=== PATIENT | female | born 1995 | race Caucasian/White ===

== ENCOUNTER → 2018-05-31 11:00 | Outpatient (CLI) | payer OTHER, SELFPAY ==
[2018-06-01 12:29] LABS: Group B Strep DNA By PCR Negative (Negative); Internal Control PASS; Probe Check PASS; Specimen Processing Control PASS
== END ==
PROVIDERS: Visit Provider Obstetrics & Gynecology
DX: Z36.85 Encounter for antenatal screening for Streptococcus B (principal)
CPT/HCPCS: 87081; 87653

== ENCOUNTER 2018-07-01 03:05 | Inpatient (IN) | payer SELFPAY, OTHER ==
[2018-07-01] MEDS: Lactated Ringers 1,000 ML 50 ML IV ×5 (03:15→17:45)
[2018-07-01 03:34] LABS: Hematocrit 39.5 % (37-47); Hemoglobin 13.5 g/dl (12.0-15.0); Mean Corp Hgb Conc 34.2 g/gl (32-36); Mean Corpuscular Hgb 30.3 pg (27.0-32.0); Mean Corpuscular Volume 88.8 fL (81-99); Mean Platelet Vol. 10.5 fl (6.2-12.0); Platelet Count 173 K/mm3 (150-450); RBC Distribution Width CV 13.2 % (11.6-14.6); RBC Distribution Width SD 42.3 fl (35.1-43.9); Red Blood Count 4.45 M/mm3 (4.2-5.4); White Blood Count 10.3 K/mm3 (4.4-11.0)
[2018-07-01 03:38] LABS: Scan Indicated on CBC? Y/N NO
[2018-07-01] MEDS: fentaNYL-bupivacaine (epidural) 100 ML BAG EPIDURAL ×3 (04:43→15:36)
[2018-07-01 05:57] LABS: Chlamydia Trachomatis by PCR Negative (Negative); Neisserai gonorrhoeae by PCR Negative (Negative); Probe Check PASS; Sample Adequacy Control PASS; Specimen Processing Control PASS
[2018-07-01] MEDS: Oxytocin 30 units/NS 500 ml 30 UNITS/500 ML IV.SOLN IV (09:32)
[2018-07-01] MEDS: Ondansetron 4 MG/2 ML Vial IV (15:53)
[2018-07-01] MEDS: Methylergonovine 0.2 MG/ML Ampul IM (20:37)
[2018-07-01] MEDS: Oxytocin 30 units/NS 500 ml 30 UNITS/500 ML IV.SOLN 334 UNITS IV (20:43)
--- NOTE | 2018-07-01 20:54 | PCM.OB.VAG ---
Vaginal Delivery Maternal Presentation: Active Labor Amniotic Membrane Rupture Type: Artificial Amniotic Fluid Description: Clear Final RAIMUNDO: 06/27/18 Final RAIMUNDO Source: US <20 weeks Gestational age: 40 Weeks and 4 Days Success doctor who attended delivery (if requested by OB): Sommer Bautista - Slow to Cry Date of Procedure: 07/01/18 Pre-Operative Diagnosis: Post-Operative Diagnosis: Surgery/ Procedure Performed: Spontaneous Vaginal Delivery Type of Anesthesia: Epidural Description of Procedure: Spontaneous vaginal delivery of a viable female infant with Apgars of 5/7/8 from an occiput anterior presentation with clear amniotic fluid and normal three-vessel placenta. Terminal meconium noted. Precipitous delivery after 3 hours pushing with last push and I entered the delivery room just moments after the baby was born. Pediatrics and respiratory therapy called to assist with resuscitation of the baby after the baby was slow to cry possibly from the precipitous delivery. No episiotomy. Second-degree midline laceration repaired with 3-0 Rapide suture under epidural anesthesia. Sponge counts okay. Delivery physician of record: Mikel Rose MD. Presentation: Vertex Placental Delivery Description: Spontaneous Placenta Disposition: [facility] Cord Vessel Description: 3 Vessels Cord Gases drawn per routine: VBG Cord Entanglement: Around neck x 1, loose Estimated Blood Loss: 450 cc A gender: Female (1 minute): 5 (5 minute): 7 Episiotomy Description: None Laceration: Midline, 2nd degree Medications given after delivery: IV Pitocin, IM Methergin Complications: None
--- NOTE | 2018-07-01 21:02 | PCM.DCVAG ---
Discharge Diet: No Restrictions Discharge Activity: May Shower, May Take a Tub Bath May resume sexual activity in: 4-6 weeks Additional Activity Instructions:: Nothing in the vagina for 4-6 weeks. You may return to work/school in 6 weeks. Call your doctor if you observe: Fever of 101 or Higher, Inability to urinate, Inability to have a bowel movement, Using more than one pad per hour Additional Instructions: If you experience any of the following, contact your healthcare provider. Bleeding that soaks a pad every hour for 2 hours Unrelieved incision or abdominal pain Swelling, redness, discharge or bleeding from your incision or episiotomy site Your incision begins to separate Problems urinating (including inability to urinate or burning while urinating). Visual changes Severe headache Flu-like symptoms Pain or redness in one of both of your breasts Pain, warmth, tenderness or swelling in your legs, especially the calf area Frequent nausea and vomiting Symptoms of depression or anxiety If you experience any of the following, call 911 or go to the nearest Emergency Room. Chest pain Problems breathing Seizure activity Partial or complete paralysis of a body part, slurred speech, weakness or drooping of the face, or a sudden inability to walk or hold your balance Allergies/Adverse Reactions: Allergies No Known Allergies Allergy (Verified 07/01/18 03:15) Medications to take at Discharge Vits [Prenatabs FA] 1 tablet PO DAILY 07/01/18 Please Follow Up With: Mikel Rose MD - [phone] When: Call to make an appointment with your doctor in 6 weeks. Primary Care Physician: Mikel Ornelas [Primary Care Provider] - Test Results: Test results from this visit will be discussed in further detail at your follow-up appointment, if applicable.
[2018-07-01] MEDS: Oxytocin 30 units/NS 500 ml 30 UNITS/500 ML IV.SOLN 167 UNITS IV (21:15)
[2018-07-02] MEDS: Ibuprofen 600 MG Tablet PO ×2 (00:09→16:32)
[2018-07-02 02:00] VITALS: BP 98/62; PULSE 88; RESP 18; TEMP 37; O2SAT 98
[2018-07-02 08:51] VITALS: BP 82/56; PULSE 117; RESP 20; TEMP 36.7
--- NOTE | 2018-07-02 09:36 | PCM.PN.OB ---
Subjective: Patient without complaints. Breast-feeding going well. Minimal vaginal bleeding. - Physical Exam Vital Signs Temp Pulse Resp BP Pulse Ox 98.0 F 117 H 20 H 82/56 L 98 07/02/18 08:51 07/02/18 08:51 07/02/18 08:51 07/02/18 08:51 07/02/18 02:00 Oxygen Delivery Method Room Air Weight: 186 lb 1.122 oz Body Mass Index (BMI) 30.0 Intake and Output for Last 24 Hours 06/30/18 07/01/18 07/02/18 23:59 23:59 23:59 Intake Total 6129 / 6129 Output Total 1625 / 1625 900 / 900 Balance 4504 / 4504 -900 / -900 Medical Necessity - Tobacco Use Smoking Status: Never smoker Assessment/Plan Doing well day #1. Continuing present care.
[2018-07-02 12:00] VITALS: BP 89/51; PULSE 112; RESP 18; TEMP 36.8
[2018-07-02 16:00] VITALS: BP 89/53; PULSE 83; RESP 18; TEMP 37.1
[2018-07-02 20:30] VITALS: BP 93/50; PULSE 79; RESP 16; TEMP 36.7
[2018-07-03 02:00] VITALS: BP 81/49; PULSE 71; RESP 16; TEMP 36.6
[2018-07-03 07:35] VITALS: BP 88/53; PULSE 84; RESP 18; TEMP 36.8
[2018-07-03] MEDS: Ibuprofen 600 MG Tablet PO (10:00)
[2018-07-03] MEDS: Senna/Docusate Sodium 1 Tablet PO (10:01)
--- NOTE | 2018-07-03 10:31 | NURSING ---
pt denies any symptoms of hypotension. labia appears less edematous than previously described. Pt encouraged to continue ice and motrin
--- NOTE | 2018-07-03 11:09 | PCM.PN.OB ---
Subjective: Patient without complaints. Breast-feeding going well. Ready to go home. - Physical Exam Vital Signs Temp Pulse Resp BP Pulse Ox 98.2 F 84 18 88/53 L 98 07/03/18 07:35 07/03/18 07:35 07/03/18 07:35 07/03/18 07:35 07/02/18 02:00 Oxygen Delivery Method Room Air Weight: 186 lb 1.122 oz Body Mass Index (BMI) 30.0 Intake and Output for Last 24 Hours 07/01/18 07/02/18 07/03/18 23:59 23:59 23:59 Intake Total 6129 / 6129 Output Total 1625 / 1625 1200 / 1200 Balance 4504 / 4504 -1200 / -1200 Medical Necessity - Tobacco Use Smoking Status: Never smoker Assessment/Plan Doing well day #2. Will release to home with routine instructions.
== END 2018-07-03 15:00 | disposition home or self-care (01) | DRG 775 ==
PROVIDERS: Admitting Provider Obstetrics & Gynecology; Family Provider Family Medicine; PCP Family Medicine; Visit Provider Obstetrics & Gynecology
DX: O62.3 Precipitate labor (principal); O70.1 Second degree perineal laceration during delivery; O77.0 Labor and delivery complicated by meconium in amniotic fluid; O69.81X0 Labor and delivery complicated by cord around neck, without compression, not applicable or unspecified; Z3A.40 40 weeks gestation of pregnancy; Z37.0 Single live birth
CPT/HCPCS: 59025; 59050; 85027; 86850; 86900; 87491; 87591; 99218; J7120; G0378; J2405

== ENCOUNTER → 2019-05-10 08:56 | Outpatient (CLI) | payer OTHER, SELFPAY ==
[2019-05-10 13:14] LABS: Chlamydia Trachomatis by PCR Negative (Negative); Neisserai gonorrhoeae by PCR Negative (Negative); Probe Check PASS; Sample Adequacy Control PASS; Specimen Processing Control PASS
== END ==
PROVIDERS: Family Provider Family Medicine; PCP Family Medicine; Visit Provider Obstetrics & Gynecology
DX: Z12.4 Encounter for screening for malignant neoplasm of cervix (principal); Z11.3 Encounter for screening for infections with a predominantly sexual mode of transmission
CPT/HCPCS: 87491; 87591; 88175; G0145

== ENCOUNTER → 2019-11-14 09:15 | Outpatient (CLI) | payer OTHER, SELFPAY | PROVIDERS: Visit Provider Obstetrics & Gynecology | DX: Z36.85 Encounter for antenatal screening for Streptococcus B (principal) | CPT/HCPCS: 87081 ==

== ENCOUNTER 2019-12-08 03:33 | Inpatient (IN) | payer SELFPAY ==
[2019-12-08] MEDS: Lactated Ringers 1,000 ML 50 ML IV (04:25)
[2019-12-08 04:53] LABS: Absolute Lymphocyte Count 2.05 X10^3/uL (0.83-4.51); Absolute Neutrophil Count 4.8 X10^3/uL (2.0-7.7); Basophil# 0.01 X10^3/uL; Basophil% 0.1 % (0-1); Eosinophil# 0.05 X10^3/uL; Eosinophils% 0.7 % (0-5); Hematocrit 38.3 % (37-47); Hemoglobin 12.7 g/dL (12.0-15.0); Lymphocyte # 2.05 X10^3/ul (4.0); Lymphocyte % 27.1 % (19-41); Mean Corp Hgb Conc 33.2 g/dL (32-36); Mean Corpuscular Hgb 28.9 pg (27.0-32.0); Mean Corpuscular Volume 87.2 fL (81-99); Mean Platelet Vol. 10.2 fl (6.2-12.0); Monocyte# 0.66 X10^3/uL; Monocyte% 8.7 % (0-10); NRBC Flagged by Analyzer 0 % (0-5); Neutrophil # 4.76 X10^3/uL (2.7-7.7); Platelet Count 156 K/mm3 (150-450); RBC Distribution Width CV 13.2 % (11.6-14.6); RBC Distribution Width SD 41.4 fl (35.1-43.9); Red Blood Count 4.39 M/mm3 (4.2-5.4); White Blood Count 7.6 K/mm3 (4.4-11.0)
[2019-12-08 05:07] VITALS: BMI 32.1
--- NOTE | 2019-12-08 06:25 | PCM.HP.OB ---
- Problem List (1) 39 weeks gestation of Status: Acute History Date of Admission: 12/08/19 Final RAIMUNDO: 12/13/19 Final RAIMUNDO Source: US <20 weeks Gestational age: 39 Weeks and 2 Days History of this : This is a 24 year-old, G [], P [], at 39 weeks gestational age. Allergies No Known Allergies Allergy (Verified 12/08/19 05:27) Home Medications: Home Medications Vits [Prenatabs FA] 1 tablet PO DAILY 07/01/18 Smoking Status: Never smoker Number of Fetus(es): 1 NST - FHR Rate Baby A Baseline: 135 Variability:: Moderate Accelerations:: 15 x 15 Decelerations:: None NST Reactive:: Yes FHR Category:: Category I Uterine Activity:: 2-3 min History Past Pregnancies: Past Pregnancies Delivery Date Name GA/ Weeks Outcome Route Wt Infant Sex Labor Length Anesthesia Delivery Location Provider FOB 08/24 6 SAB Home 06/25 Wanda 40 viable vag 7.15 female 16 epidural [facility] Labs: Mom's Labs & Results 12/08/19 12/08/19 04:25 04:25 WBC 7.6 RBC 4.39 Hgb 12.7 Hct 38.3 MCV 87.2 MCH 28.9 MCHC 33.2 RDW Std Deviation 41.4 RDW Coeff of Jaida 13.2 Plt Count 156 MPV 10.2 Immature Gran % (Auto) 0.400 Neut % (Auto) 63.0 Lymph % (Auto) 27.1 [place] % (Auto) 8.7 Eos % (Auto) 0.7 Baso % (Auto) 0.1 Absolute Neuts (auto) 4.8 Absolute Lymphs (auto) 2.05 Nucleated RBC % 0 Blood Type A POSITIVE Antibody Screen NEGATIVE Course Did the patient receive Yes care? Labs Blood Type: A RH: POSITIVE RPR/VDRL/Syphilis Nonreactive Rubella status Immune HbSAg Negative Date Done: 06/06/19 Chlamydia Negative Gonorrhea Negative HIV/AIDS Non-Reactive Group B Strep: Negative Current Obstetrical History Gestational Diabetes No Incompetent Cervix No Infertility No IUGR No Macrosomia No Hypertension/Pre-eclampsia No Placenta Previa/Abruption No PTL/PROM No Uterine anomaly No Oligohydramnios No Polyhydramnios No Multiple gestation No Past Medical History Asthma No Diabetes No Hypertension No Heart disease No Mitral valve prolapse No Neurologic/Seizure disorder/ No Migraines Kidney disease No Liver disease No Varicosities No Clotting disorders/Hx of DVT No Thyroid Dysfunction No Other medical diseases No Psychiatric disorders No Major trauma No Abnormal PAP smear No Sleep apnea No Mammogram in the last 2 years No Social History Marital Status: Alleged father sadia Hx Smoking No Smoking Status Never smoker How long have you used n/a substances (years)? Expected Infant Delivery Method: Spontaneous Vaginal Number of Visits: 11 Review of Systems Constitutional: Denies: Chills, Fever, Weight Change HEENT: Denies: Head Aches, Sinus Congestion, Sinus Drainage Cardiovascular: Denies: Chest Pain, Palpitations Respiratory: Denies: Cough, Shortness of breath at rest, Sputum production Gastrointestinal: Denies: Abdominal Pain, Nausea, Vomiting Genitourinary: Denies: Dysuria Musculoskeletal: Denies: Joint Pain, Joint Tenderness Skin: Denies: Rash, Wounds Neurological: Denies: Numbness, Tingling, Focal weakness Psychiatric: Denies: Anxiety, Depression, Homicidal Ideations, Suicidal Ideations Hematologic/ Lymphatic: Denies: Easy Bruising, Easy Bleeding Physical Exam General: Alert, Oriented x3, No apparent distress HEENT: Atraumatic, Normocephalic. Negative for: Thyromegaly, Lymphadenopathy Cardiovascular: Regular rate, Regular Rhythm Lungs: Clear to auscultation Abdomen: Bowel Sounds Present, Gravid Neurological: Deep Tendon Reflexes 2+/4 and Symmetrical, Neuro grossly intact MANAGER PRODUCT: Normal external genitalia. Negative for: Vulvar lesions Estimated gestational size: Appropriate for gestational size Presentation: Cephalic Cervix Dilation (cm): 4 - per RN Station: -2 Effacement (%): 80 Assessment/Plan All Active Problems 39 weeks gestation of (Acute) A: This is a 24 year-old, G [3], P [1], at 39 weeks gestational age. Spontaneous onset of labor Early active labor NST reactive Category I P: Admit for labor Wishes to have a natural
--- NOTE | 2019-12-08 07:40 | PCM.PN.OB ---
Patient Problems: Active and Suspected Problems 39 weeks gestation of (Acute) Subjective: Feeling pressure with each contraction. Pain is 8/10 with Nitrous mask. Objective: SVE 8/90/0 with intact bulging bag of fluid. NST reactive category I baseline 140, + accels, - decels. UC 1-3 minutes - Physical Exam Vitals/I&O's: Weight: 84.822 kg Body Mass Index (BMI) 32.1 Intake and Output for Last 24 Hours 12/06/19 12/07/19 12/08/19 23:59 23:59 23:59 Intake Total 321.67 / 321.67 Balance 321.67 / 321.67 General: Alert, Oriented x3, Cooperative HEENT: Atraumatic, PERRLA, EOMI, Normocephalic Neck: Supple, No JVD, Negative Carotid Bruits Lungs: Clear to auscultation, Normal air movement Cardiovascular: Regular rate, No murmurs Abdomen: Bowel Sounds Present, Soft, Non Tender Extremities: No edema, Capillary Refill Less than 3 Seconds Skin: No rashes, No breakdown Musculoskeletal: No Tenderness to Palpation of Joints or Extremities Neurological: Cranial nerves II-XII grossly intact Psych/Mental Status: Normal Affect, Appropriate Laboratory Results 12/08/19 04:25: WBC 7.6, RBC 4.39, Hgb 12.7, Hct 38.3, MCV 87.2, MCH 28.9, MCHC 33.2, RDW Std Deviation 41.4, RDW Coeff of Jaida 13.2, Plt Count 156, MPV 10.2, Immature Gran % (Auto) 0.400, Neut % (Auto) 63.0, Lymph % (Auto) 27.1, [place] % (Auto) 8.7, Eos % (Auto) 0.7, Baso % (Auto) 0.1, Absolute Neuts (auto) 4.8, Absolute Lymphs (auto) 2.05, Nucleated RBC % 0 12/08/19 04:25: Blood Type A POSITIVE, Antibody Screen NEGATIVE Current Medications Acetaminophen (Tylenol) 325 - 650 mg PO Q4H PRN PRN PRN Reason: Pain Score 1-3/10 Al Hydroxide/Mg Hydroxide (Mylanta Ii) 15 - 30 ml PO Q4H PRN PRN PRN Reason: INDIGESTION Citric Acid/Sodium Citrate (Bicitra) 30 ml PO X1 PRN PRN Reason: Section Fentanyl Citrate (Sublimaze (100mcg Ampule)) 25 - 50 mcg IV Q2H PRN PRN PRN Reason: Pain Score 4-10/10 Lactated Ringer's () 500 mls @ 999 mls/hr IV .Q31M PRN PRN Reason: Epidural Lactated Ringer's () 500 mls @ 999 mls/hr IV .Q31M PRN PRN Reason: Corrective Measures Lactated Ringer's () 1,000 mls @ 50 mls/hr IV .Q20H ARVIND Last Infusion: 12/08/19 06:51 Dose: 50 mls/hr Documented by: Ondansetron HCl (Zofran) 4 mg IV Q4H PRN PRN PRN Reason: NAUSEA Prochlorperazine Edisylate (Compazine Iv) 10 mg IV Q6H PRN PRN PRN Reason: NAUSEA Sodium Chloride () 10 - 40 ml IV X1 PRN PRN Reason: SALINE FLUSH Medical Necessity - Tobacco Use Smoking Status: Never smoker Assessment/Plan All Active Problems 39 weeks gestation of (Acute) A: Active labor NST reactive category I with UC 1-3 min Tolerating labor well with nitrous mask for pain management P: AROM- outcome scant meconium stained with blood in fluid, after AROM SVE Call attending Dr. Rose for delivery Expect
[2019-12-08] MEDS: Oxytocin 30 units/NS 500 ml 30 UNITS/500 ML IV.SOLN 334 UNITS IV (08:16)
--- NOTE | 2019-12-08 08:31 | OP.PCM_ITS ---
Vaginal Delivery Maternal Presentation: Active Labor Amniotic Membrane Rupture Type: Artificial Amniotic Fluid Description: Clear Final RAIMUNDO: 12/13/19 Final RAIMUNDO Source: US <20 weeks Gestational age: 39 Weeks and 2 Days Date of Procedure: 12/08/19 Pre-Operative Diagnosis: IUP Post-Operative Diagnosis: IUP Surgery/ Procedure Performed: Spontaneous Vaginal Delivery Type of Anesthesia: None Description of Procedure: Spontaneous vaginal delivery of a viable female with Apgars of 9/9 from an occiput anterior presentation with clear amniotic fluid and normal three- vessel placenta. No episiotomy. First-degree midline laceration repaired with 3-0 Rapide suture. Sponges okay. Delivery physician: Mikel Rose MD. Presentation: Vertex Placental Delivery Description: Spontaneous Placenta Disposition: [facility] Cord Vessel Description: 3 Vessels Cord Entanglement: None Estimated Blood Loss: 250 cc A gender: Female (1 minute): 9 (5 minute): 9 Episiotomy Description: None Laceration: None Medications given after delivery: IV Pitocin Complications: None
--- NOTE | 2019-12-08 08:34 | DCINST_ITS ---
Discharge Activity: May Shower, May Take a Tub Bath May resume sexual activity in: 4-6 weeks Additional Activity Instructions:: Nothing in the vagina for 4-6 weeks. You may return to work/school in 6 weeks. Call your doctor if you observe: Fever of 101 or Higher, Inability to urinate, Inability to have a bowel movement, Using more than one pad per hour Additional Instructions: If you experience any of the following, contact your healthcare provider. * Bleeding that soaks a pad every hour for 2 hours * Unrelieved incision or abdominal pain * Swelling, redness, discharge or bleeding from your incision or episiotomy site * Your incision begins to separate * Problems urinating (including inability to urinate or burning while urinating). * Visual changes * Severe headache * Flu-like symptoms * Pain or redness in one of both of your breasts * Pain, warmth, tenderness or swelling in your legs, especially the calf area * Frequent nausea and vomiting * Symptoms of depression or anxiety If you experience any of the following, call 911 or go to the nearest Emergency Room. * Chest pain * Problems breathing * Seizure activity * Partial or complete paralysis of a body part, slurred speech, weakness or drooping of the face, or a sudden inability to walk or hold your balance Allergies/Adverse Reactions: Allergies No Known Allergies Allergy (Verified 12/08/19 05:27) Medications to take at Discharge Vits [Prenatabs FA] 1 tablet PO DAILY 07/01/18 Please Follow Up With: Mikel Rose MD - [phone] When: Call to make an appointment with your doctor in 6weeks. If you had elevated Blood pressure or 4th degree laceration you will need to be seen in 2 weeks. Primary Care Physician: Mikel Ornelas MD [Primary Care Provider] - Test Results: Test results from this visit will be discussed in further detail at your follow- up appointment, if applicable.
--- NOTE | 2019-12-08 08:34 | PCM.DCVAG ---
Discharge Activity: May Shower, May Take a Tub Bath May resume sexual activity in: 4-6 weeks Additional Activity Instructions:: Nothing in the vagina for 4-6 weeks. You may return to work/school in 6 weeks. Call your doctor if you observe: Fever of 101 or Higher, Inability to urinate, Inability to have a bowel movement, Using more than one pad per hour Additional Instructions: If you experience any of the following, contact your healthcare provider. Bleeding that soaks a pad every hour for 2 hours Unrelieved incision or abdominal pain Swelling, redness, discharge or bleeding from your incision or episiotomy site Your incision begins to separate Problems urinating (including inability to urinate or burning while urinating). Visual changes Severe headache Flu-like symptoms Pain or redness in one of both of your breasts Pain, warmth, tenderness or swelling in your legs, especially the calf area Frequent nausea and vomiting Symptoms of depression or anxiety If you experience any of the following, call 911 or go to the nearest Emergency Room. Chest pain Problems breathing Seizure activity Partial or complete paralysis of a body part, slurred speech, weakness or drooping of the face, or a sudden inability to walk or hold your balance Allergies/Adverse Reactions: Allergies No Known Allergies Allergy (Verified 12/08/19 05:27) Medications to take at Discharge Vits [Prenatabs FA] 1 tablet PO DAILY 07/01/18 Please Follow Up With: Mikel Rose MD - [phone] When: Call to make an appointment with your doctor in 6weeks. If you had elevated Blood pressure or 4th degree laceration you will need to be seen in 2 weeks. Primary Care Physician: iMkel Ornelas MD [Primary Care Provider] - Test Results: Test results from this visit will be discussed in further detail at your follow-up appointment, if applicable.
[2019-12-08 12:54] VITALS: BP 101/58; PULSE 88; RESP 16; TEMP 36.8
[2019-12-08 16:10] VITALS: BP 91/47; PULSE 76; RESP 16; TEMP 37.2; O2SAT 97
[2019-12-08] MEDS: Acetaminophen 500 MG Tablet 1000 MG PO (19:14)
[2019-12-08 20:03] VITALS: BP 105/61; PULSE 94; RESP 14; TEMP 37; O2SAT 97
[2019-12-08 23:24] VITALS: BP 93/48; PULSE 66; RESP 14; TEMP 36.8
[2019-12-09 03:58] VITALS: BP 95/44; PULSE 68; RESP 14; TEMP 36.7
[2019-12-09 08:29] VITALS: BP 93/46; PULSE 66; RESP 16; TEMP 36.7; O2SAT 98
--- NOTE | 2019-12-09 10:58 | PN.OBGYN_ITS ---
Patient Problems: Active and Suspected Problems 39 weeks gestation of (Acute) Subjective: Feeling well with no pain. daughter comfortably. Reports mild blues after first daughter and concerned this time. Asked about [place] Wort and okay with . Advised not sure of safety profile. To try relax ation measures, time for self and Zoloft safe in . Objective: VSS. Fundus u/1, firm and midline. Normal lochia rubra. well. - Physical Exam Vitals/I&O's: Vital Signs Temp Pulse Resp BP Pulse Ox 98.1 F 66 16 93/46 L 98 12/09/19 08:29 12/09/19 08:29 12/09/19 08:29 12/09/19 08:29 12/09/19 08:29 Oxygen Delivery Method Room Air Weight: 84.822 kg Body Mass Index (BMI) 32.1 Intake and Output for Last 24 Hours 12/07/19 12/08/19 12/09/19 23:59 23:59 23:59 Intake Total 807.22 / 807.22 Output Total 200 / 200 Balance 607.22 / 607.22 General: Alert, Oriented x3, Cooperative HEENT: Atraumatic, PERRLA, EOMI, Normocephalic Neck: Supple, No JVD, Negative Carotid Bruits Lungs: Clear to auscultation, Normal air movement Cardiovascular: Regular rate, No murmurs Abdomen: Bowel Sounds Present, Soft, Non Tender, Passing Flatus, - - fundus u/1 Extremities: No edema, Capillary Refill Less than 3 Seconds Skin: No rashes, No breakdown Musculoskeletal: No Tenderness to Palpation of Joints or Extremities Neurological: Cranial nerves II-XII grossly intact Psych/Mental Status: Normal Affect, Appropriate Current Medications Acetaminophen (Tylenol) 1,000 mg PO Q8H PRN PRN PRN Reason: Pain Score 1-3/10 Last Admin: 12/08/19 19:14 Dose: 1,000 mg Documented by: Bisacodyl (Dulcolax) 10 mg RECTAL UD PRN PRN Reason: If no BM Dibucaine (Dibucaine) 1 applic TOPICAL TID PRN PRN; Protocol PRN Reason: Discomfort Hydrocortisone (Hytone) 1 applic TOPICAL TID PRN PRN; Protocol PRN Reason: Discomfort Ibuprofen (Motrin) 600 mg PO Q6H PRN PRN PRN Reason: Pain Score 1-3/10 Methylergonovine Maleate (Methergine) 0.2 mg IM X1 PRN PRN Reason: Excess bleeding/uterine atony Ondansetron HCl (Zofran) 4 mg IV Q4H PRN PRN PRN Reason: Nausea Senna/Docusate Sodium (Senokot-S, Dori-Colace) 1 - 2 tablet PO DAILY PRN PRN PRN Reason: Constipation Simethicone (Mylicon) 80 mg PO PCHS PRN PRN Reason: Indigestion/Stomach pain Sodium Chloride () 5 - 15 ml IV UD PRN PRN Reason: SALINE FLUSH Zolpidem Tartrate (Ambien (Generic)) 5 mg PO QHS PRN PRN PRN Reason: Insomnia Medical Necessity - Tobacco Use Smoking Status: Never smoker Assessment/Plan All Active Problems 39 weeks gestation of (Acute) A: day #1 Normal involution with lochia rubra daughter well Stable course of P: To discharge home today per request To follow up with Dr. Rose in 6 weeks If signs of depression to call for visit ESTRADA and discussed Zoloft already. She would be okay starting it if needed.
[2019-12-09 11:04] VITALS: BP 100/55; PULSE 93; RESP 16; TEMP 36.5; O2SAT 97
== END 2019-12-09 14:00 | disposition home or self-care (01) | DRG 807 ==
PROVIDERS: Obstetrics & Gynecology; Admitting Provider Obstetrics & Gynecology; Family Provider Family Medicine; PCP Family Medicine; Referring Provider Obstetrics & Gynecology; Visit Provider Obstetrics & Gynecology
DX: O77.0 Labor and delivery complicated by meconium in amniotic fluid (principal); O70.0 First degree perineal laceration during delivery; Z37.0 Single live birth; Z3A.39 39 weeks gestation of pregnancy
CPT/HCPCS: 59025; 59050; 85025; 86850; 86900; 86901; 99218; J7120; 90686; G0378

== ENCOUNTER → 2020-12-17 13:50 | Outpatient (CLI) | payer OTHER, SELFPAY ==
[2020-12-20 04:08] LABS: Chlamydia By Nucleic Acid AMP Negative (Negative)
[2020-12-20 12:34] LABS: Gonococcus By Nucleic Acid AMP Negative (Negative)
[2020-12-20 20:49] LABS: HPV Reflexed? NOT INDICATED
== END ==
PROVIDERS: PCP Family Medicine; Visit Provider Obstetrics & Gynecology
DX: Z12.4 Encounter for screening for malignant neoplasm of cervix (principal); Z11.3 Encounter for screening for infections with a predominantly sexual mode of transmission
CPT/HCPCS: 87491; 87591; 88175; G0145

== ENCOUNTER → 2021-04-22 09:30 | Outpatient (CLI) | payer OTHER, SELFPAY | PROVIDERS: PCP Family Medicine; Visit Provider Obstetrics & Gynecology | DX: Z36.85 Encounter for antenatal screening for Streptococcus B (principal) | CPT/HCPCS: 87081 ==

== ENCOUNTER 2021-05-23 06:50 | Inpatient (IN) | payer SELFPAY, OTHER ==
[2021-05-23] VITALS (43 sets, daily range): BP systolic 77–110; BP diastolic 43–70; PULSE 57–85; RESP 16; TEMP 36.5–36.9; O2SAT 81–99; BMI 33.2
[2021-05-23] MEDS: Lactated Ringers 1,000 ML 50 ML IV (07:00)
[2021-05-23] MEDS: Lactated Ringers 500 ML 999 ML IV ×2 (07:00→12:04)
--- NOTE | 2021-05-23 07:11 | PCM.HP.BLA ---
History and Physical Date of Admission: 05/23/21 Chief complaint: Contractions History of present illness: 25-year-old at 40 weeks and 4 days with RAIMUNDO: 05/19/2020 1 x 18-week ultrasound arrives with contractions. Denies headache, visual changes, chest pain, shortness of breath. States good movement Obstetric history: G1: SAB 08/18/2017 G2: at term 07/01/2018 female G3: term 12/08/2019 female G4: Current Past medical history: Anxiety Medications: vitamin, sertraline Surgical history: Cholecystectomy Allergies: No known drug allergies Social history: Denies smoking, place, drug use Family history: Denies his DVT or PE Review of systems: Besides above pertinent positives a full review of systems performed and found to be negative Physical exam: Vitals: Blood pressure 100/60 pulse 82 SPO2 98% on room air General: Normal-appearing no acute distress HEENT: Normocephalic atraumatic eyes for lymphadenopathy Cardiac/respiratory: No use of accessory muscles, nonlabored breathing Abdomen: Soft, nontender, gravid Extremities: No peripheral edema normal peripheral pulses Psych: Normal affect normal demeanor nonpressured speech Assessment plan: 25-year-old G4, P2 at 40 weeks and 4 days in labor Admit labor and delivery CEFM GBS negative Routine orders Anesthesia to see
[2021-05-23 07:15] LABS: Absolute Lymphocyte Count 1.88 X10^3/uL (0.83-4.51); Absolute Neutrophil Count 5.4 X10^3/uL (2.0-7.7); Basophil# 0.02 X10^3/uL; Basophil% 0.2 % (0-1); Eosinophil# 0.05 X10^3/uL; Eosinophils% 0.6 % (0-5); Hematocrit 33.1 % (37-47); Hemoglobin 10.5 g/dL (12.0-15.0); Lymphocyte # 1.88 X10^3/ul (0.83-4.51); Lymphocyte % 23.1 % (19-41); Mean Corp Hgb Conc 31.7 g/dL (32-36); Mean Corpuscular Hgb 26.1 pg (27.0-32.0); Mean Corpuscular Volume 82.1 fL (81-99); Mean Platelet Vol. 10.3 fl (6.2-12.0); Monocyte# 0.77 X10^3/uL; Monocyte% 9.5 % (0-10); NRBC Flagged by Analyzer 0 % (0-5); Neutrophil # 5.39 X10^3/uL (2.7-7.7); Neutrophil % 66.2 % (47-70); Platelet Count 156 K/mm3 (150-450); RBC Distribution Width CV 14.1 % (11.6-14.6); RBC Distribution Width SD 41.6 fl (35.1-43.9); Red Blood Count 4.03 M/mm3 (4.2-5.4); White Blood Count 8.1 K/mm3 (4.4-11.0)
[2021-05-23] MEDS: fentaNYL-bupivacaine (epidural) 100 ML BAG EPIDURAL ×2 (08:04→12:40)
--- NOTE | 2021-05-23 08:17 | PCM.PN.BLA ---
Progress Note Patient seen and examined. Now comfortable with epidural. Physical exam: Vitals: Blood pressure 105/63 pulse 83 Pelvic exam: Cervical exam 5/60/-3, AROM thin meconium heart tones: 120/moderate variability/positive accelerations/negative decelerations Assessment plan: Patient seen and examined AROM for thin meconium. Educated patient on [place] including risks for meconium aspiration. patient state understanding. Director [employer] Analysis Programs to be present at delivery otherwise we will continue with current management
[2021-05-23] MEDS: Oxytocin 30 units/NS 500 ml 30 UNITS/500 ML IV.SOLN IV (12:40)
[2021-05-23] MEDS: Lactated Ringers 1,000 ML 200 ML IV (12:55)
[2021-05-23] MEDS: Oxytocin 30 units/NS 500 ml 30 UNITS/500 ML IV.SOLN 334 UNITS IV (14:28)
--- NOTE | 2021-05-23 14:39 | OP.PCM_ITS ---
Vaginal Delivery Findings Description of Procedure: Normal spontaneous vaginal labor viable male infant, vertex MELI. Head and shoulders delivered these. Cord cut clamped. Baby handed off to mom. Placenta delivered via cord traction and fundal massage. First- degree midline perineal laceration noted and repaired in typical fashion. EBL 250 cc Apgars 8/9
[2021-05-23] MEDS: Sertraline 50 MG Tablet PO (23:18)
[2021-05-23] MEDS: Acetaminophen 500 MG Tablet 1000 MG PO (23:34)
[2021-05-24] VITALS (7 sets, daily range): BP systolic 93–103; BP diastolic 54–58; PULSE 69–88; RESP 16–18; TEMP 36.1–36.6
[2021-05-24] MEDS: Ibuprofen 600 MG Tablet PO (08:29)
--- NOTE | 2021-05-24 10:11 | PN.OBGYN_ITS ---
Subjective Subjective OOB, voiding without difficulty. Denies heavy lochia or painfulness. She feels well today. Infant nursing well. She reports changes in her peripheral vision and blurred vision. She is able to see and read without difficulty, it is just different than prior. She is nearsighted and wears glasses most days, but they b roke earlier this week and she has not worn them in the hospital. She denies headache, chest pain, shortness of breath. Objective Data Objective Data Vital Signs: Vital Signs Temp Pulse Resp BP Pulse Ox 97.2 F L 71 16 93/58 L 99 05/24/21 08:35 05/24/21 08:35 05/24/21 08:35 05/24/21 08:35 05/23/21 13:53 Oxygen Delivery Method Room Air Weight: 87.8 kg Body Mass Index (BMI) 33.2 Intake & Output: Intake and Output for Last 24 Hours 05/22/21 05/23/21 05/24/21 23:59 23:59 23:59 Intake Total 3055.40 / 3055.40 Output Total 3400 / 3400 Balance -344.60 / -344.60 Lab / Micro Data Result Diagrams: 05/23/21 07:00 Micro: Microbiology 05/23/21 06:55 Mucosa - Nasopharyngeal SARS-CoV-2 Antigen (Rapid) - Final Physical Exam Const alert, oriented x3 and no apparent distress Eyes normal visual dunham by confrontation General Eye: normal appearance of both eyes Resp normal respiratory effort and normal air movement Cardio regular rate, regular rhythm, S1 normal heart sound and S2 normal heart sound GI normal to inspection, nondistended, normoactive bowel sounds, soft to palpation, non-tender and non-distended Uterus Palpation: uterus fundus firm and other OB fundus nontender Extremity no calf tenderness and no pedal edema Neuro oriented x3 Neuro Narrative: +1 b/l DTRs Assessment & Plan (1) (spontaneous vaginal delivery): COMMENT: PPD#1 PLAN: A pos, Rubella immune Routine care No evidence of preeclampsia Physiologic vision changes, encouraged to follow up with platinum and palladium kettle tender d/c home
--- NOTE | 2021-05-24 10:18 | PCM.DC ---
Discharge Instructions Diet Discharge Diet: No restrictions Activity Discharge Activity: Return to Normal Activity May resume sexual activity in: 4-6 weeks Lifting Restrictions: 20lb Dressing / Incision Call your doctor if you observe: Fever of 101 or Higher, Using more than 1 pad per hour, Shortness of breath, Chest pain, Calf discomfort, Uncontrolled pain and - (Persistent or severe headache) Follow Up Care Please Follow Up With: Wilmer Aguilar MD When: 3 weeks for telehealth follow up 6 weeks for visit Test Results: Test results from this visit will be discussed in further detail at your follow-up appointment, if applicable. Discharge Plan Admission Admit Date/Time: 05/23/21 06:50 Primary Reason for Your Visit: Vaginal delivery Attending Provider: Wilmer Aguilar Primary Care Provider: Mikel Ornelas Instructions Patient Instructions: After a Vaginal , Understanding Depression Discharge Orders/Prescriptions Prescriptions: New ibuprofen 800 mg tablet 800 mg PO Q8H PRN (Reason: pain) Qty: 30 RF: 0 No Action Prenatabs FA 1 TABLET tablet 1 tab PO DAILY RF: 0 sertraline [Zoloft] 50 mg Tablet 50 mg PO DAILY RF: 0 Referrals / Follow Up: Mikel Ornelas MD [Primary Care Provider] - Disposition Disposition (needs filled in before D/C Order can be placed): Home, Self Care
== END 2021-05-24 16:05 | disposition home or self-care (01) | DRG 807 ==
LOC: WPOUT 06:56 → WP 06:56
PROVIDERS: Admitting Provider Obstetrics & Gynecology; PCP Family Medicine; Referring Provider Obstetrics & Gynecology; Visit Provider Obstetrics & Gynecology
DX: O70.0 First degree perineal laceration during delivery (principal); Z37.0 Single live birth; O77.0 Labor and delivery complicated by meconium in amniotic fluid; Z3A.40 40 weeks gestation of pregnancy
CPT/HCPCS: 59025; 59050; 85025; 86850; 86900; 86901; 87426; 99218; J7120; G0378

== ENCOUNTER → 2022-05-07 | Outpatient (CLI) | payer OTHER, SELFPAY | END | disposition home or self-care (01) | LOC: LABSPEC 14:42 | PROVIDERS: PCP Family Medicine; Visit Provider Obstetrics & Gynecology | DX: Z12.4 Encounter for screening for malignant neoplasm of cervix (principal) | CPT/HCPCS: 88175; G0145 ==